=== PATIENT | male | born 1955 | race Caucasian/White ===

== ENCOUNTER → 2022-04-30 | Outpatient (CLI) | payer MEDICARE ==
--- NOTE | 2022-04-30 20:20 | XR ---
EXAMINATION TYPE: XR Hip Bilateral Complete, XR lumbar spine 2 or 3V DATE OF EXAM: 04/30/2022 COMPARISON: NONE INDICATION: Bilateral hip and low back pain TECHNIQUE: 2 views of each hip joint. 3 views of the lumbar spine FINDINGS: Advanced degenerative changes of the lower thoracic and lumbar spine with multilevel opposing endplat e osteophytosis, degenerated discs and subchondral sclerotic changes, most evident at L5-S1 level. Pelletier spected bilateral L5-S1 neural foraminal stenosis. No definite vertebral body collapse or acute osseous fracture. Bilaterally L4-5 and L5-S1 facet osteo arthropathy. Degenerative changes of the inferior aspect of the sacroiliac joints. Arterial atheroscl erotic calcifications. Severe bilateral hip joint degenerative changes, more on the right side. No definite acute hip fractu re identified. 5.1 cm calcification is seen in the pelvis, possibly within the urinary bladder. Recom mend correlation with urinalysis results and urology consultation. Further CT scan assessment is advi sed. IMPRESSION: Advanced degenerative changes of the lumbar spine and hip joints as detailed above. Further MRI asses sment can be considered. Suspected urinary bladder large stone measuring 5.1 cm. Recommend correlation with urinalysis results and urology consultation. Further CT confirmation is advised.
== END | disposition home or self-care (01) ==
LOC: RADXRYALE 09:27
PROVIDERS: ATTEND Family Medicine
DX: M47.816 Spondylosis without myelopathy or radiculopathy, lumbar region (principal); M16.0 Bilateral primary osteoarthritis of hip
CPT/HCPCS: 72100; 73521

== ENCOUNTER → 2022-05-23 | Outpatient (CLI) | payer MEDICARE ==
--- NOTE | 2022-05-24 05:00 | MR ---
EXAMINATION TYPE: MR lumbar spine wo con DATE OF EXAM: 05/23/2022 COMPARISON: None HISTORY: Low back and bilateral hip pain x 2 years Multiplanar multiecho imaging of the lumbar spine with no contrast. The lumbar vertebrae have normal alignment. There is disc space narrowing throughout the lumbar spine . No compression fracture. There is spurring of the endplates. There are small posterior disc bulges from T11 to L3 vertebra. There is developmentally adequate spinal canal and no spinal stenosis. There is no lumbar paraspinal mass. No compression fracture. There is bilateral L5-S1 neural foraminal adam rowing due to disc space narrowing and facet arthropathy. No evidence of focal bone destruction. IMPRESSION: Multilevel lumbar spondylotic changes. L5-S1 neural foraminal narrowing bilaterally. No spinal stenos is. No fracture.
--- NOTE | 2022-05-24 05:05 | MR ---
EXAMINATION TYPE: MR hips BILAT wo con DATE OF EXAM: 05/23/2022 COMPARISON: None HISTORY: Low back and bilateral hip pain x 2 years Multiplanar multiecho imaging of the pelvis and both hips with no contrast. On the T1 images there is abnormal decreased signal in the subchondral femoral heads bilaterally. Thi s is consistent with chronic avascular necrosis. No significant collapse of the articular surface. Th e femoral necks are intact. Acetabula appear intact. Pelvic ring is intact. The bladder distends blee d. No free fluid in the pelvis. There is moderate right-sided hip joint effusion. There is large low signal rounded area in the urinary bladder related to large bladder calculus that measures 5.4 cm in length. 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 Large right hip joint effusion and synovia l cyst. Large bladder calculus.
== END | disposition home or self-care (01) ==
LOC: RADMRIMAIN 06:30
PROVIDERS: ATTEND Family Medicine
DX: M16.0 Bilateral primary osteoarthritis of hip (principal); M51.36 Other intervertebral disc degeneration, lumbar region; M54.50 Low back pain, unspecified
CPT/HCPCS: 72148

== ENCOUNTER → 2023-01-28 | Outpatient (CLI) | payer MEDICARE ==
--- NOTE | 2023-01-29 10:24 | XR ---
EXAMINATION TYPE: XR KUB DATE OF EXAM: 01/28/2023 4:43 PM CLINICAL HISTORY: Bladder calculi TECHNIQUE: Two supine KUB images of the abdomen are obtained. COMPARISON: Lumbar spine and pelvic x-ray April 30, 2022. FINDINGS: Persistent 4.8 cm large calculus within bladder in the mid to lower pelvis similar to prior . Overall nonobstructive bowel gas pattern. Multilevel spurring and disc space narrowing in the spine. Lung bases are clear. Advanced degenerative change in both hip joints redemonstrated with marked narr owing and joint space sclerosis. IMPRESSION: As above.
== END | disposition home or self-care (01) ==
LOC: RADXRMAIN 16:26
PROVIDERS: ATTEND Urology
DX: N21.0 Calculus in bladder (principal); M16.0 Bilateral primary osteoarthritis of hip
CPT/HCPCS: 74018

== ENCOUNTER → 2023-02-10 | Outpatient (CLI) | payer MEDICARE ==
[2023-02-10 19:31] LABS: Appearance,Urine Clear (Clear); Bilirubin,Urine Negative (Negative); Blood,Urine Trace (Negative); Color,Urine Yellow (Yellow); Ketones,Urine Negative (Negative); Nitrite,Urine Negative (Negative); Specific Gravity,Urine 1.023 (1.001-1.030); Urobilinogen,Urine 0.2 (0.2,1.0)
[2023-02-10 19:55] LABS: African American GFR (CKD) 91.4 (60.0-200.0); Anion Gap 10.7 mmol/L (10.00-18.00); BUN/Creat Ratio 17.35 Ratio (12.00-20.00); Calcium 9.6 mg/dL (8.7-10.3); Carbon Dioxide 25.2 mmol/L (20.0-27.5); Non-African American GFR(CKD) 78.9 (60.0-200.0); Potassium 4.3 mmol/L (3.5-5.5)
[2023-02-10 20:04] LABS: Bacteria,Urine None Seen /HPF (None Seen)
[2023-02-10 20:07] LABS: HCT 48.6 % (39.6-50.0); HGB 16.2 g/dL (13.0-17.0); MCH 30.1 pg (27.0-32.0); MCHC 33.3 g/dL (32.0-37.0); MCV 90.2 fL (80.0-97.0); Mean Platelet Volume 10.1 fL (9.5-12.2); NRBC Per 100 WBC 0 /100 WBCS (0.0-0.0); Platelet Count 221 X 10*3/uL (140-440); RBC 5.39 X 10*6/uL (4.40-5.60); RDW 14.3 % (11.5-14.5); WBC 9.46 X 10*3/uL (4.50-10.00)
== END | disposition home or self-care (01) ==
LOC: LABWHC1 14:23
PROVIDERS: ATTEND Urology
DX: Z01.812 Encounter for preprocedural laboratory examination (principal); R31.29 Other microscopic hematuria; N21.9 Calculus of lower urinary tract, unspecified
CPT/HCPCS: 36415; 80048; 81001; 85027; 87086

== ENCOUNTER 2023-02-18 08:10 | Day surgery (SDC) | payer MEDICARE ==
--- NOTE | 2023-02-17 19:18 | P.GSHP ---
History of Present Illness H&P Date: 02/17/23 67 yo male comes for cysto lithotripsy with laser to a 4.8 cm bladder stone found on a hip xray. He does have bladder symptoms There has not been bladder infection, He odoesnot have a histroy of kidney stones. He comes for this procedure. - Constitutional Constitutional: Denies chills, Denies fever - EENT Eyes: denies blurred vision, denies pain Ears, nose, mouth and throat: Denies headache, Denies sore throat - Cardiovascular Cardiovascular: Denies chest pain, Denies shortness of breath - Respiratory Respiratory: Denies cough, Denies 7 - Gastrointestinal Gastrointestinal: Denies abdominal pain, Denies diarrhea, Denies nausea, Denies vomiting - Genitourinary (Female) Genitourinary: Denies dysuria, Denies hematuria - Genitourinary (Male) Genitourinary: Denies dysuria, Denies hematuria - Musculoskeletal Musculoskeletal: Denies myalgias - Integumentary Integumentary: Denies pruritus, Denies rash - Neurological Neurological: Denies numbness, Denies weakness - Psychiatric Psychiatric: Denies anxiety, Denies depression - Endocrine Endocrine: Denies fatigue, Denies weight change Past Medical History Additional Past Medical History / Comment(s): bladder stone, History of Any Multi-Drug Resistant Organisms: None Reported Past Surgical History: Tonsillectomy Past Anesthesia/Blood Transfusion Reactions: No Reported Reaction Smoking Status: Never smoker, Second hand smoke exposure - Past Family History Father Family Medical History: No Reported History Medications and Allergies Home Medications Medication Instructions Recorded Confirmed Type Unk Tylenol Pm 2 tab PO HS 02/12/23 02/12/23 History Allergies Allergy/AdvReac Type Severity Reaction Status Date / Time No Known Allergies Allergy Verified 02/12/23 13:26 Surgical - Exam - General well developed, well nourished, no distress - Eyes normal ocular movement, no icteric - ENT no hearing loss, no congestion - Neck no masses, trachea midline - Respiratory normal respiratory effort, clear to auscultation - Abdomen Abdomen: soft, non tender, no guarding, no rigid, no rebound - Integumentary no rash, no abnormal pigmentation - Neurologic no disoriented, no combative - Psychiatric oriented to time, oriented to person, oriented to place, speech is normal, memory intact Results - Imaging Abdominal x-ray: report reviewed, image reviewed Assessment and Plan Assessment: Impression: bladder stone, large, 4.8cm Plan: cystolithotripsy with laser
[~2023-02-18 08:10] MED LIST: DEXAMETHASONE SOD PHOSPHATE 4 MG/ML 1 ML VIAL IV ONE; LACTATED RINGERS 1,000 ML IV SCH; LIDOCAINE 1% (10MG/ML) FOR IV START INTRADERMA PRN; ONDANSETRON 4 MG/2 ML VIAL IVP ONE
[2023-02-18 08:39] VITALS: RESP 16
[2023-02-18] MEDS ORDERED: MIDAZOLAM 2 MG/2 ML VIAL ONE (10:06)
[2023-02-18] MEDS ORDERED: LIDOCAINE 2% INJ 20 MG/ML (2 ML VIAL) ONE (10:06)
[2023-02-18] MEDS ORDERED: HYDROmorphone (PF) 1 MG/ML ONE (10:06)
[2023-02-18] MEDS ORDERED: fentaNYL (PF) 50 MCG/ML 2 ML AMP ONE (10:06)
[2023-02-18] MEDS ORDERED: PROPOFOL 10 MG/ML 20 ML VIAL IV ONE (10:06)
[2023-02-18] MEDS ORDERED: LACTATED RINGERS 1,000 ML IV ONE ×2 (10:57→13:01)
--- NOTE | 2023-02-18 13:11 | P.OP ---
Date of Procedure: 02/18/23 Preoperative Diagnosis: Bladder stone large, 5 cm Postoperative Diagnosis: Same Procedure(s) Performed: Cystoscopy with cystolithotripsy using laser lithotripsy Anesthesia: [facility] Surgeon: Evangelist Jackson Estimated Blood Loss (ml): 25 Pathology: other (Stone) Condition: stable Disposition: PACU Indications for Procedure: The patient is 67. He has irritative voiding symptoms. He had a hip x-ray identified a 5 cm bladder stone he comes for cystoscopy lithotripsy Description of Procedure: Patient brought to the operating suite. Given general anesthesia. Placed lithotomy position with a sterile prep and drape. Cystoscopy with a 21-English sheath and Foroblique lens identifies a normal anterior urethra. The prostate is somewhat obstructing. The bladder suárez moderately trabeculated. There is a large trabeculated stone. With a 100 laser probe and 20-40 W of energy the stone was broken into tiny pieces and flushed out of the bladder. The time of surgery takes about 2 hours. Then the procedure there is no remaining stone up. An 18-English Reddy catheters placed the patient's awake and returned recovery room good condition. He'll be discharged home upon recovery. The catheter remain in 48 hours.
[2023-02-18] MEDS: HYDROmorphone 0.5 MG/0.5 ML SYRINGE IVP PRN ×3 (13:25→13:36)
[2023-02-18 13:31] VITALS: TEMP 97
[2023-02-18] MEDS ORDERED: KETOROLAC 15 MG/ML 1 ML VIAL IVP ONE (13:41)
[2023-02-18 15:20] VITALS: BP 141/80; PULSE 81
== END 2023-02-18 15:52 | disposition home or self-care (01) ==
LOC: OR 08:10
PROVIDERS: ATTEND Urology
DX: N21.0 Calculus in bladder (principal); Z79.899 Other long term (current) drug therapy; Z90.89 Acquired absence of other organs
CPT/HCPCS: 82365; 52317; J2250; J1100; J0690; J2405; J3010; J1170 ×2; J1885; J2704; J2001